=== PATIENT | female | born 1970 | race Caucasian/White ===

== ENCOUNTER 2021-02-16 12:14 | Outpatient (CLI) | payer BC ==
[2021-02-16 12:32] VITALS: BP 168/91; PULSE 88
--- NOTE | 2021-02-16 12:41 | NUR ---
taken back toflouroscopy room, to lobby
[2021-02-16 13:30] VITALS: BP 149/84; PULSE 70; PULSE 73
[2021-02-16 13:45] VITALS: BP 137/83; PULSE 68
[2021-02-16 13:55] LABS: CSF APPEARANCE CLEAR; CSF COLOR COLORLESS; GLUCOSE,CSF 47 mg/dL (40-70); TOTAL PROTEIN,CSF 33 mg/dL (15-45)
[2021-02-16 13:56] LABS: CSF RBC 125 /mm3 (0-0)
[2021-02-16 14:00] VITALS: BP 133/82; PULSE 66
[2021-02-16 14:15] VITALS: BP 139/92; PULSE 64
[2021-02-16 14:25] LABS: CSF MONONUCLEAR 90 % (70-100); CSF POLYMORPHONUCLEAR 10 % (0-6)
[2021-02-16 14:30] VITALS: BP 137/82; PULSE 70
--- NOTE | 2021-02-16 14:45 | NUR ---
DC instructions reviewed with pt and son, both express understanding. She is able to change positions with ease and without c/o dizziness or other issue following 1 hr flattime. Has tolerated sips of water without issue. Bandaid to LP puncture site remains clean, dry and intact. She is assisted out to 's car by wheelchair.
[2021-02-19 14:55] LABS: CSF OLIG BD INTERPRETATION 10 bands (<2); SE OLIGOCLONAL BANDING 0 bands (())
[2021-02-20 08:20] LABS: ALBUMIN CSF 12.5 mg/dL (<=27.0)
[2021-02-20 08:26] LABS: CSF IGG/ALBUMIN 0.44 (<=0.21); CSF,IGG 5.5 mg/dL (<=8.1)
[2021-02-20 08:54] LABS: ALBUMUN SERUM 4140 mg/dL (()); CSF SYNTHESIS RATE 17.63 mg/24 h (<=12); CSF-IGG INDEX 1.57 (<=0.85); IGG,SERUM 1170 mg/dL (()); IGG/ALBUMIN SERUM 0.28 (<=0.40)
== END 2021-02-16 14:40 | disposition home or self-care (01) ==
LOC: COL.RAD 12:14
PROVIDERS: Psychiatry & Neurology Neurology
DX: G37.9 Demyelinating disease of central nervous system, unspecified (principal); R93.0 Abnormal findings on diagnostic imaging of skull and head, not elsewhere classified